=== PATIENT | male | born 1950 | race Hispanic/Latino ===

== ENCOUNTER 2023-07-12 16:38 | Emergency (ER) | payer OTHER ==
[~2023-07-12] VITALS: Ht 167.6 cm; Wt 102.1 kg
[2023-07-12 20:20] LABS: BASOPHILS # (AUTO) 0.03 K/uL (0.00-0.20); BASOPHILS % (AUTO) 0.4 % (0.0-5.0); EOSINOPHILS # (AUTO) 0.42 K/uL (0.00-0.70); EOSINOPHILS % (AUTO) 5.2 % (0.0-8.0); HEMATOCRIT 38.5 % (42-54); IMMATURE GRANULOCYTE ABSOLUTE 0.03 K/uL (0-1); LYMPHOCYTES # (AUTO) 1.9 K/uL (1.0-4.8); LYMPHOCYTES % (AUTO) 23.8 % (21.0-51.0); MEAN CORPUSCULAR HEMOGLOBIN 31.8 pg (27.0-33.0); MEAN CORPUSCULAR HGB CONC 34.5 g/dL (32.0-36.0); MEAN CORPUSCULAR VOLUME 92.1 fL (79-99); MONOCYTES # (AUTO) 0.8 K/uL (0.1-1.0); MONOCYTES % (AUTO) 9.6 % (3.0-13.0); NEUTROPHILS # (AUTO) 4.9 K/uL (1.8-7.7); NEUTROPHILS % (AUTO) 60.6 % (40.0-77.0); PLATELET COUNT (AUTO) 231 K/uL (130-400); RED BLOOD CELL COUNT(AUTO) 4.18 MIL/uL (4.50-6.20); RED CELL DISTRIBUTION WIDTH 13.5 % (11.0-15.5)
[2023-07-12 20:34] LABS: CREATININE 0.9 mg/dL (0.5-1.5); POTASSIUM 5.1 mmol/L (3.5-5.1)
[2023-07-12 20:47] LABS: ALBUMIN 3.9 g/dL (3.5-5.0); BILIRUBIN,TOTAL 0.8 mg/dL (0.2-1.0); TOTAL PROTEIN, SERUM 7.3 g/dL (6.0-8.3)
[2023-07-12] MEDS ORDERED: IOHEXOL 350 MG/ML 100ML INFUS..BTL IV ONE (21:41)
[2023-07-12 21:44] LABS: APPEARANCE,URINE CLEAR (CLEAR); BILIRUBIN,URINE NEGATIVE (NEGATIVE); COLOR,URINE YELLOW (YELLOW); GLUCOSE, URINE (UA) NEGATIVE (NEGATIVE); KETONES,URINE 10 mg/dL (NEGATIVE); LEUKOCYTE ESTERASE ,URINE NEGATIVE Leu/uL (NEGATIVE); NITRATE,URINE NEGATIVE (NEGATIVE); OCCULT BLOOD,URINE NEGATIVE (NEGATIVE); PH,URINE 5.5 (5.0-8.0); PROTEIN,URINE NEGATIVE (NEGATIVE); UROBILINOGEN,URINE 0.2 mg/dL (0.2-1.0)
[2023-07-12 21:48] LABS: ADD UA MICROSCOPIC YES
[2023-07-12 21:50] LABS: MUCUS,URINE RARE LPF (None Seen); WBC,URINE 0-1 /HPF (0-1)
[2023-07-12] MEDS ORDERED: AMOX1TAB16 PO (22:32)
[2023-07-12] MEDS ORDERED: LEVO-70 PO (22:32)
[2023-07-12 22:52] VITALS: BP 152/74; PULSE 62; RESP 18; O2SAT 98
[2023-07-12] MEDS ORDERED: AMOX/CLAV 875/125MG TAB PO ONE (23:00)
[2023-07-12] MEDS ORDERED: LEVOFLOXACIN 750 MG TABLET PO ONE (23:00)
== END 2023-07-12 22:56 | disposition home or self-care (01) ==
LOC: EDH 16:38
DX: K57.92 Diverticulitis of intestine, part unspecified, without perforation or abscess without bleeding (principal); I25.10 Atherosclerotic heart disease of native coronary artery without angina pectoris; E11.9 Type 2 diabetes mellitus without complications; E78.00 Pure hypercholesterolemia, unspecified; I10 Essential (primary) hypertension; K21.9 Gastro-esophageal reflux disease without esophagitis; Z79.84 Long term (current) use of oral hypoglycemic drugs; Z79.899 Other long term (current) drug therapy; Z95.5 Presence of coronary angioplasty implant and graft
CPT/HCPCS: 99285; 74177; 82150; 84484; 80053; 83690; 85025; 81001; 36415; Q9967

== ENCOUNTER 2023-07-15 07:35 | Observation (INO) | payer OTHER ==
[~2023-07-15] VITALS: Ht 167.6 cm; Wt 102.1 kg
[~2023-07-15 07:35] MED LIST: AMOX1TAB16 PO; LEVO-70 PO
[2023-07-15] MEDS ORDERED: ACETAMINOPHEN 325 MG TAB PO ONE (08:00)
[2023-07-15] MEDS ORDERED: 0.9%NACL 1000ML 1,000 ML IV ONE (08:00)
[2023-07-15] MEDS ORDERED: PANTOPRAZOLE 40 MG/VIAL IVP ONE (08:00)
[2023-07-15 08:21] LABS: BASOPHILS # (AUTO) 0.01 K/uL (0.00-0.20); BASOPHILS % (AUTO) 0.2 % (0.0-5.0); EOSINOPHILS % (AUTO) 5.1 % (0.0-8.0); HEMATOCRIT 38.2 % (42-54); IMMATURE GRANULOCYTE ABSOLUTE 0.02 K/uL (0-1); LYMPHOCYTES # (AUTO) 1.3 K/uL (1.0-4.8); LYMPHOCYTES % (AUTO) 22.6 % (21.0-51.0); MEAN CORPUSCULAR HEMOGLOBIN 32.5 pg (27.0-33.0); MEAN CORPUSCULAR HGB CONC 35.6 g/dL (32.0-36.0); MEAN CORPUSCULAR VOLUME 91.4 fL (79-99); MONOCYTES # (AUTO) 0.5 K/uL (0.1-1.0); MONOCYTES % (AUTO) 9.3 % (3.0-13.0); NEUTROPHILS # (AUTO) 3.6 K/uL (1.8-7.7); NEUTROPHILS % (AUTO) 62.5 % (40.0-77.0); PLATELET COUNT (AUTO) 227 K/uL (130-400); RED BLOOD CELL COUNT(AUTO) 4.18 MIL/uL (4.50-6.20); RED CELL DISTRIBUTION WIDTH 13.3 % (11.0-15.5); WHITE BLOOD COUNT (AUTO) 5.8 K/uL (4.8-10.8)
[2023-07-15 08:31] LABS: INR 0.99 (0.85-1.15); PROTHROMBIN TIME 11.5 SEC (9.6-11.6)
[2023-07-15 08:41] LABS: ALBUMIN 3.6 g/dL (3.5-5.0); BILIRUBIN,TOTAL 0.9 mg/dL (0.2-1.0); POTASSIUM 3.7 mmol/L (3.5-5.1); TOTAL PROTEIN, SERUM 7.2 g/dL (6.0-8.3)
[2023-07-15] MEDS ORDERED: LEVOFLOXACIN 750 MG/D5W 150ML BAG IV ONE (12:00)
[2023-07-15 12:24] LABS: ADD UA MICROSCOPIC NO; APPEARANCE,URINE CLEAR (CLEAR); BILIRUBIN,URINE NEGATIVE (NEGATIVE); COLOR,URINE YELLOW (YELLOW); GLUCOSE, URINE (UA) NEGATIVE (NEGATIVE); KETONES,URINE NEGATIVE (NEGATIVE); LEUKOCYTE ESTERASE ,URINE NEGATIVE Leu/uL (NEGATIVE); NITRATE,URINE NEGATIVE (NEGATIVE); OCCULT BLOOD,URINE NEGATIVE (NEGATIVE); PROTEIN,URINE NEGATIVE (NEGATIVE); UROBILINOGEN,URINE 0.2 mg/dL (0.2-1.0)
[2023-07-15] MEDS ORDERED: PANT40GR PO (12:48)
[2023-07-15] MEDS ORDERED: METF-446 PO (12:48)
[2023-07-15] MEDS ORDERED: LISI5TAB21 PO (12:48)
[2023-07-15] MEDS ORDERED: METO25TA6 PO (12:48)
[2023-07-15] MEDS ORDERED: ATOR40TA71 PO (12:48)
[2023-07-15] MEDS ORDERED: ISOS30TA92 PO (12:48)
[2023-07-15] MEDS ORDERED: ACETAMINOPHEN 500 MG TABLET PO PRN (13:00)
[2023-07-15] MEDS ORDERED: ONDANSETRON 4MG INJ IVP PRN (13:00)
[2023-07-15 13:14] LABS: HEMOGLOBIN A1C 6.1 % (4.0-6.0)
[2023-07-15] MEDS: PANTOPRAZOLE 80 MG in 0.9%NACL 100ML IVP SCH ×2 (13:38→23:00)
[2023-07-15] MEDS: 0.9%NACL 1000ML 1,000 ML IV SCH (13:39)
[2023-07-15 14:15] LABS: THYROID STIMULATING HORMONE 5.59 uIU/mL (0.36-3.74)
[2023-07-15 15:45] VITALS: BP 136/77; PULSE 66; RESP 17
[2023-07-15] MEDS: INSULIN HUMULIN R 100 UNIT/ML 3ML SQ SCH ×2 (16:30→21:00)
[2023-07-15] MEDS: ZOSYN 3.375GM +NS 50ML IVPB SCH (17:55)
[2023-07-15] MEDS ORDERED: 0.9%NACL 50ML IV SCH (18:00)
[2023-07-15 18:01] VITALS: O2SAT 98
[2023-07-15] MEDS ORDERED: ASPI-1005 PO (18:06)
[2023-07-15 19:00] VITALS: BP 152/57; PULSE 84; RESP 18
[2023-07-15 19:40] VITALS: O2SAT 100
[2023-07-15 19:49] LABS: HEMATOCRIT 38.6 % (42-54)
[2023-07-15] MEDS ORDERED: ATORVASTATIN 40 MG TABLET PO SCH (21:00)
[2023-07-15] MEDS: METOPROLOL TARTRATE 25 MG TAB PO SCH (22:24)
[2023-07-15 23:00] VITALS: BP 142/75; PULSE 52; RESP 18
[2023-07-16] VITALS (18 sets, daily range): BP systolic 98–156; BP diastolic 38–81; PULSE 49–60; RESP 14–19
[2023-07-16] MEDS: ZOSYN 3.375GM +NS 50ML IVPB SCH ×2 (03:03→10:00)
[2023-07-16] MEDS: 0.9%NACL 1000ML 1,000 ML IV SCH (03:18)
[2023-07-16] MEDS ORDERED: MORPHINE 2 MG SYG IVP ONE (04:30)
[2023-07-16] MEDS: INSULIN HUMULIN R 100 UNIT/ML 3ML SQ SCH (05:31)
[2023-07-16 06:26] LABS: BASOPHILS # (AUTO) 0.02 K/uL (0.00-0.20); BASOPHILS % (AUTO) 0.3 % (0.0-5.0); EOSINOPHILS # (AUTO) 0.37 K/uL (0.00-0.70); EOSINOPHILS % (AUTO) 6.4 % (0.0-8.0); HEMATOCRIT 38.4 % (42-54); IMMATURE GRANULOCYTE ABSOLUTE 0.03 K/uL (0-1); LYMPHOCYTES # (AUTO) 1.4 K/uL (1.0-4.8); LYMPHOCYTES % (AUTO) 23.8 % (21.0-51.0); MEAN CORPUSCULAR HEMOGLOBIN 32.5 pg (27.0-33.0); MEAN CORPUSCULAR HGB CONC 34.4 g/dL (32.0-36.0); MEAN CORPUSCULAR VOLUME 94.6 fL (79-99); MONOCYTES # (AUTO) 0.5 K/uL (0.1-1.0); NEUTROPHILS # (AUTO) 3.5 K/uL (1.8-7.7); PLATELET COUNT (AUTO) 212 K/uL (130-400); RED BLOOD CELL COUNT(AUTO) 4.06 MIL/uL (4.50-6.20); RED CELL DISTRIBUTION WIDTH 13.2 % (11.0-15.5); WHITE BLOOD COUNT (AUTO) 5.8 K/uL (4.8-10.8)
[2023-07-16 06:40] LABS: ALBUMIN 3.3 g/dL (3.5-5.0); BILIRUBIN,TOTAL 1.1 mg/dL (0.2-1.0); POTASSIUM 4.5 mmol/L (3.5-5.1); TOTAL PROTEIN, SERUM 6.7 g/dL (6.0-8.3)
[2023-07-16] MEDS ORDERED: ISOSORBIDE MONO 30MG SR TAB PO SCH (09:00)
[2023-07-16] MEDS: PANTOPRAZOLE 80 MG in 0.9%NACL 100ML IVP SCH (09:00)
[2023-07-16] MEDS ORDERED: ATORVASTATIN 40 MG TABLET PO SCH (09:00)
[2023-07-16] MEDS ORDERED: LISINOPRIL 5 MG TABLET PO SCH (09:00)
[2023-07-16] MEDS ORDERED: PROPOFOL 10 MG/ML 20ML VIAL IV ONE (09:05)
[2023-07-16] MEDS: METOPROLOL TARTRATE 25 MG TAB PO SCH (10:43)
[2023-07-16] MEDS ORDERED: COMPOUND IV REFRIGERATED 1 EACH IVSOLN MISC PRN (12:00)
[2023-07-18 15:14] LABS: C DIFFICILE TOXIN A/B Not Detected (Not Detected); ENTEROAGGREGATIVE ECOLI Not Detected (Not Detected); GIARDIA LAMBLIA Not Detected (Not Detected); PLESIOMONAS SHIGELOIDES Not Detected (Not Detected); SAPOVIRUS Not Detected (Not Detected); SHIGELLA/ENTEROINVASIVE E COLI Not Detected (Not Detected); VIBRIO Not Detected (Not Detected); VIBRIO CHOLERAE Not Detected (Not Detected)
== END 2023-07-16 14:20 | disposition home or self-care (01) ==
LOC: EDH 07:35 → EDHIP 12:28 → 3BH 15:45
PROVIDERS: ADMIT Internal Medicine; ATTEND Internal Medicine
DX: K92.2 Gastrointestinal hemorrhage, unspecified (principal); R19.5 Other fecal abnormalities; I25.10 Atherosclerotic heart disease of native coronary artery without angina pectoris; E78.5 Hyperlipidemia, unspecified; E66.9 Obesity, unspecified; G47.33 Obstructive sleep apnea (adult) (pediatric); I11.9 Hypertensive heart disease without heart failure; F32.A Depression, unspecified; E11.9 Type 2 diabetes mellitus without complications; K21.9 Gastro-esophageal reflux disease without esophagitis; Z79.82 Long term (current) use of aspirin; Z95.5 Presence of coronary angioplasty implant and graft; Z79.84 Long term (current) use of oral hypoglycemic drugs; Z79.899 Other long term (current) drug therapy; Z68.36 Body mass index [BMI] 36.0-36.9, adult; Z86.2 Personal history of diseases of the blood and blood-forming organs and certain disorders involving the immune mechanism
CPT/HCPCS: 96376; 96365; 96366 ×3; 96367; 96368; 99284; 83036; 84443; 82550; 83735; 84484; 80053 ×2; 83880; 85025 ×2; 85610; 85014 ×2; 85018 ×2; 86850; 86900; 86901; 82948 ×3; 87324; 86140; 82270; 81003; 36415 ×2; 93005; 87507; 84145; 88305; 88312; 43239; G0378 ×24; J1956; J7030 ×2; C9113 ×2; J2704; J2543; A4620; A4215; A4223; A4222; A4606; J3490

== ENCOUNTER → 2023-07-31 | Outpatient (CLI) | payer OTHER ==
[~2023-07-31] MED LIST changes: -AMOX1TAB16 PO; +ASPI-1005 PO; +ATOR40TA71 PO; +ISOS30TA92 PO; -LEVO-70 PO; +LISI5TAB21 PO; +METF-446 PO; +METO25TA6 PO; +PANT40GR PO
== END | disposition home or self-care (01) ==
LOC: EDUNIT# 14:00 → RAH 15:40
PROVIDERS: ATTEND Chiropractor
DX: I35.0 Nonrheumatic aortic (valve) stenosis (principal); I25.9 Chronic ischemic heart disease, unspecified; I10 Essential (primary) hypertension
CPT/HCPCS: 93306